=== PATIENT | female | born 1985 | race Caucasian/White ===

== ENCOUNTER 2019-02-11 09:47 | Emergency (ER) | payer BC, SELFPAY ==
[2019-02-11 10:12] VITALS: BP 119/84; PULSE 84; RESP 18; TEMP 36.9; O2SAT 100; BMI 27.6
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
[2019-02-11 12:17] VITALS: BP 117/69; PULSE 76; RESP 16; TEMP 36.6; O2SAT 100
== END 2019-02-11 12:27 | disposition home or self-care (01) ==
PROVIDERS: Emergency Provider Physician Assistant; Family Provider Internal Medicine
DX: S13.4XXA Sprain of ligaments of cervical spine, initial encounter (principal); V89.2XXA Person injured in unspecified motor-vehicle accident, traffic, initial encounter
CPT/HCPCS: 72125; 99281; 99283